=== PATIENT | female | born 1960 | race Caucasian/White ===

== ENCOUNTER 2020-01-19 15:50 | Emergency (ER) | payer OTHER, SELFPAY ==
[2020-01-19 16:00] VITALS: BP 118/69; PULSE 66; RESP 18; TEMP 36.8; O2SAT 99
--- NOTE | 2020-01-19 16:16 | ED.GENADULT ---
HPI - General Adult General Chief complaint: Skin/Abscess/Foreign Body Stated complaint: Rash on legs Time Seen by Provider: 01/19/20 16:16 Source: patient and RN notes reviewed Mode of arrival: ambulatory Limitations: no limitations History of Present Illness HPI narrative: 59-year-old female presents with complaints of rash to diffused LT lower leg for the past 8 days. Lakshmi says rash has increase over the past 48 hours to RT lower leg. Denies open areas or itching. Denies new changes in personal hygiene products or laundry detergent. No new foods or medications. Denies increase in usage of NSAIDS or blood thinners. No kidney pain, hematuria, swelling, burning, bleeding, or drainage. Denies fever, chills, headaches, weakness, fatigue, myalgia, facial swelling, or tongue swelling. Denies chest pain or dyspnea. The patient reports she have not been diagnosed with COVID-19. The patient reports she is not waiting for the results of a COVID-19 lab test. The patient reports she do not have fever or chills. The patient reports she do not have a new or worsening cough or shortness of breath. Denies chest pain. The patient reports she do not have any rhinorrhea, congestion, sore throat, nausea, vomiting, abdominal pain, and diarrhea. Tolerating po intake well. Denies recent traveling. Denies concerns for COVID-19 or exposures been home with limited outdoor exposure except for essential household needs and return home. At this time, patient is not suspected of having COVID-19. Some parts of this dictation were generated by voice recognition software and may contain typographical and/or grammatical inaccuracies. Related Data Home Medications Medication Instructions Recorded Confirmed Pregavlin 150 mg/day PO BID 01/19/20 atorvastatin 40 mg PO DAILY 01/19/20 01/19/20 celecoxib [Celebrex] 100 mg PO BID 01/19/20 01/19/20 citalopram 40 mg PO DAILY 01/19/20 01/19/20 Allergies Allergy/AdvReac Type Severity Reaction Status Date / Time Penicillins Allergy Hives Verified 01/19/20 16:09 Review of Systems Review of Systems: Narrative: CONSTITUTIONAL: Denies fever, chills, sweats. EYES: Denies visual changes, redness, discharge. ENT: Denies rhinorrhea, congestion, sore throat, otalgia. CARDIOVASCULAR: Denies chest pain, palpitations, edema. RESPIRATORY: Denies dyspnea, wheezing, cough. GASTROINTESTINAL: Denies abdominal pain, nausea, vomiting, diarrhea. GENITOURINARY: Denies dysuria, hematuria, abnormal discharge SKIN: Complains of diffused rash to bilateral lower extremities. Denies drainage, open areas. MUSCULOSKELETAL: Denies acute back pain, joint pain, or myalgia. NEUROLOGIC: Denies numbness or focal weakness. PSYCHIATRIC: Denies anxiety or depression. All other systems reviewed & are unremarkable except as noted in HPI and below. [facility] Past Medical History Medical History (Updated 01/20/20 @ 00:00 by Susu Soriano) Anxiety Depression Diverticulitis Fibromyalgia [place] Hypercholesteremia Osteoarthritis Surgical History Surgical History (Updated 01/19/20 @ 16:29 by RENETTA Lopez) History of ear surgery Bilateral x2 History of foot surgery History of hysterectomy Family History Family History (Updated 01/19/20 @ 16:30 by RENETTA Lopez) Father Diabetes mellitus Heart disease Carcinoma of colon Mother 1995 unknown cause Hypertension Diabetes mellitus Social History Social History (Updated 01/19/20 @ 16:31 by RENETTA Lopez) Smoking packs per day: 0.5 Smoking cigarettes per day: 10.0 Years smoked: 33 Smoking pack-years: 16.50 Smoking status: Current every day smoker Tobacco type: cigarettes Alcohol intake: former Substance use: current Substance use type: marijuana Living arrangements: with family Occupation/Education: unemployed Gender identity (if verbalized by the patient): Female Comments At time of signatu
== END 2020-01-19 16:48 | disposition home or self-care (01) ==
PROVIDERS: Emergency Provider Nurse Practitioner Family; PCP Family Medicine
DX: R23.3 Spontaneous ecchymoses (principal); F17.210 Nicotine dependence, cigarettes, uncomplicated; F41.9 Anxiety disorder, unspecified; F32.9 Major depressive disorder, single episode, unspecified; M79.7 Fibromyalgia; E78.00 Pure hypercholesterolemia, unspecified; M19.90 Unspecified osteoarthritis, unspecified site
CPT/HCPCS: 99211; 99212; G0463